=== PATIENT | female | born 1945 | race Caucasian/White ===

== ENCOUNTER 2017-03-15 08:16 | Day surgery (SDC) | payer MEDICARE ==
[2017-03-15] MEDS ORDERED: Lactated Ringers 1,000 ML IV SCH (08:45)
[2017-03-15] MEDS ORDERED: fentaNYL 100 MCG/2 ML SDV ONE (08:46)
[2017-03-15] MEDS ORDERED: Midazolam 1 MG/ML 2 ML SDV ONE (08:46)
[2017-03-15] MEDS ORDERED: Propofol 200 MG/20 ML SDV ONE (08:46)
[2017-03-15 11:19] VITALS: BP 133/71
--- NOTE | 2017-03-15 15:19 | OR ---
DATE OF PROCEDURE: 03/15/2017 PREOPERATIVE DIAGNOSIS: History of tubular adenomas. POSTOPERATIVE DIAGNOSES: 1. Small distal rectal polyp. 2. History of tubular adenomas. PROCEDURE: Colonoscopy to the cecum with biopsy resection of small distal rectal polyp. SURGEON: Christoph Vaughn MD. ANESTHESIA: IV anesthesia with monitored anesthesia care. INDICATION: This 72-year-old white female is referred for a colonoscopy because of a history of tubular adenomas. She says her last colonoscopic exam was done three years ago. I counseled her for the procedure including risks and alternatives, and she gave her informed consent to proceed. DESCRIPTION OF PROCEDURE: The patient was placed in the left lateral decubitus position. IV anesthesia was administered by the Anesthesia Service. Time-out was held. A rectal exam was performed, which was unremarkable. The flexible video Olympus colonoscope was introduced through her anus, up her rectum, and out her colon all the way to the cecum. Once the cecum was reached, the scope was slowly withdrawn, examining the mucosa throughout. No mucosal abnormalities noted until we reached the distal rectum. Here, we saw a small polyp, which was removed with the biopsy forceps. The scope was retroflexed with the most distal rectum appearing unremarkable. The scope was straightened and removed. She tolerated the procedure well. Christoph Vaughn MD /[id number]
== END 2017-03-15 11:20 | disposition home or self-care (01) ==
LOC: JP.SDS 08:16
PROVIDERS: ATTEND Surgery
DX: Z12.11 Encounter for screening for malignant neoplasm of colon (principal); K62.1 Rectal polyp; Z85.038 Personal history of other malignant neoplasm of large intestine; F17.200 Nicotine dependence, unspecified, uncomplicated
CPT/HCPCS: 45380; 88305; J2250; J2704; J3010; J7120

== ENCOUNTER 2022-02-10 08:54 | Day surgery (SDC) | payer MEDICARE ==
[2022-02-10] MEDS ORDERED: Sodium Chloride 0.9% 1,000 ML IV SCH (09:30)
[2022-02-10] MEDS ORDERED: fentaNYL 100 MCG/2 ML SDV ONE (09:51)
[2022-02-10] MEDS ORDERED: Propofol 200 MG/20 ML SDV ONE (09:51)
[2022-02-10 11:54] VITALS: BP 149/88; PULSE 67
== END 2022-02-10 11:59 | disposition home or self-care (01) ==
LOC: JP.SDS 08:54
PROVIDERS: ATTEND Surgery
DX: Z12.11 Encounter for screening for malignant neoplasm of colon (principal); D12.5 Benign neoplasm of sigmoid colon; E78.5 Hyperlipidemia, unspecified; Z79.899 Other long term (current) drug therapy
CPT/HCPCS: 45380; J2704; J3010; J7030; 88305